=== PATIENT | female | born 1950 | race Caucasian/White ===

== ENCOUNTER 2017-11-11 14:16 | Observation (INO) | payer OTHER ==
[~2017-11-11] VITALS: Ht 165.1 cm; Wt 77.7 kg
[2017-11-11] MEDS ORDERED: BYSTOLIC5 MG PO (14:38)
[2017-11-11] MEDS ORDERED: DYAZIDE 37.5/251 CAP PO (14:38)
[2017-11-11] MEDS ORDERED: OMEPRAZOLE20 M1 PO (14:39)
[2017-11-11 15:23] LABS: BASOPHILS 0.5 % (0-2); EOSINOPHILS 1.9 % (0-7); HEMATOCRIT 48.6 % (36.0-48.0); HEMOGLOBIN 17.1 g/dL (12-16); IMMATURE GRANULOCYTES 0.1 % (0-5); LYMPHOCYTES 26.5 % (15-50); MCH 32.4 pg (26.0-34.0); MCHC 35.2 g/dL (31.0-37.0); MEAN PLATELET VOLUME 12.4 fL (7.4-10.4); MONOCYTES 7.7 % (2-11); NEUTROPHILS 63.3 % (40-80); PLATELET COUNT 183 10x3/uL (130-400); RBC 5.28 10x6/uL (4.00-5.40); RDW 13.2 % (11.5-14.5); WBC 9.4 10x3/uL (4.8-10.8)
[2017-11-11 15:37] LABS: ALBUMIN 4.5 g/dL (3.4-5.0); ALKALINE PHOSPHATASE 103 U/L (46-116); ALT (SGPT) 36 U/L (10-68); BILIRUBIN - TOTAL 1.52 mg/dL (0.2-1.3); CALC OSMOLALITY 275 mosm/kg (275-300); CALCIUM 9.7 mg/dL (8.5-10.1); CARBON DIOXIDE 26.6 mmol/L (21.0-32.0); CHLORIDE - SERUM 100 mmol/L (98-107); CREATININE - SERUM 0.8 mg/dL (0.6-1.3); GLUCOSE 102 mg/dL (74-106); POTASSIUM - SERUM 4.2 mmol/L (3.5-5.1); PROTEIN - SERUM 8.6 g/dL (6.4-8.2); SODIUM 136 mmol/L (136-145); UREA NITROGEN 23 mg/dL (7-18); eGFR NON AFRICAN AMERICAN 76 mL/min (90-120)
[2017-11-11] MEDS ORDERED: ZOVIRAX400 MG PO (20:23)
[2017-11-11] MEDS ORDERED: KLOR-CON 1010 MEQ PO (20:25)
[2017-11-11] MEDS ORDERED: BAYER CHEWABLE81 MG PO (20:25)
[2017-11-11 21:15] VITALS: BP 121/81
[2017-11-11 23:36] VITALS: BP 121/81; BMI 28.5
[2017-11-12 05:04] VITALS: BP 126/72
[2017-11-12 06:22] LABS: BASOPHILS 0.3 % (0-2); EOSINOPHILS 2.3 % (0-7); HEMOGLOBIN 15.1 g/dL (12-16); IMMATURE GRANULOCYTES 0.1 % (0-5); LYMPHOCYTES 29.7 % (15-50); MCH 31.8 pg (26.0-34.0); MCHC 34.3 g/dL (31.0-37.0); MCV 92.6 fL (80.0-100.0); MEAN PLATELET VOLUME 12.9 fL (7.4-10.4); MONOCYTES 8.7 % (2-11); NEUTROPHILS 58.9 % (40-80); PLATELET COUNT 172 10x3/uL (130-400); RBC 4.75 10x6/uL (4.00-5.40); RDW 13.3 % (11.5-14.5); WBC 7.7 10x3/uL (4.8-10.8)
[2017-11-12 06:39] LABS: ALBUMIN 3.5 g/dL (3.4-5.0); ALKALINE PHOSPHATASE 84 U/L (46-116); ALT (SGPT) 28 U/L (10-68); BILIRUBIN - TOTAL 1.22 mg/dL (0.2-1.3); CALC OSMOLALITY 277 mosm/kg (275-300); CALCIUM 8.7 mg/dL (8.5-10.1); CARBON DIOXIDE 25.7 mmol/L (21.0-32.0); CHLORIDE - SERUM 104 mmol/L (98-107); CREATININE - SERUM 0.7 mg/dL (0.6-1.3); GLUCOSE 102 mg/dL (74-106); POTASSIUM - SERUM 4.2 mmol/L (3.5-5.1); PROTEIN - SERUM 6.9 g/dL (6.4-8.2); SODIUM 138 mmol/L (136-145); UREA NITROGEN 18 mg/dL (7-18); eGFR NON AFRICAN AMERICAN 89 mL/min (90-120)
[2017-11-12 08:46] VITALS: BP 121/76
[2017-11-12 10:09] VITALS: Ht 165.1 cm; Wt 77.7 kg
[2017-11-12 20:00] VITALS: BP 150/72
[2017-11-13] VITALS: BP 128/65
[2017-11-13 05:30] VITALS: BP 117/63
== END 2017-11-13 16:05 | disposition home or self-care (01) ==
LOC: D.ER 14:16 → D.MS 18:02 → OBSVTIME 18:02 → D.ICU 11-12 16:21 → D.MS 11-12 17:28
PROVIDERS: Family Medicine
DX: J93.83 Other pneumothorax (principal); Z87.891 Personal history of nicotine dependence; I10 Essential (primary) hypertension; K21.9 Gastro-esophageal reflux disease without esophagitis

== ENCOUNTER 2019-11-09 14:00 | Outpatient (CLI) | payer OTHER ==
[2017-11-12 10:09] VITALS: BMI 28.5
[~2019-11-09 14:00] MED LIST: BAYER CHEWABLE81 MG PO; BYSTOLIC5 MG PO; DYAZIDE 37.5/251 CAP PO; KLOR-CON 1010 MEQ PO; OMEPRAZOLE20 M1 PO; ZOVIRAX400 MG PO
== END 2019-11-09 14:10 | disposition home or self-care (01) ==
LOC: D.MAMMO 14:00
PROVIDERS: ATTEND Nurse Practitioner Family
DX: Z12.31 Encounter for screening mammogram for malignant neoplasm of breast (principal)